=== PATIENT | male | born 1975 | race Caucasian/White ===

== ENCOUNTER → 2019-07-02 | Outpatient (CLI) | payer OTHER ==
[2019-07-02 07:39] LABS: BASO # 0.1 10^3/uL (0.0-0.2); EOS # 0.2 10^3/uL (0.0-0.5); EOS % 4.5 % (0.0-3.0); HEMATOCRIT 46.9 % (42.0-52.0); HEMOGLOBIN 16.1 g/dl (13.5-17.5); LYMPH # 1.5 10^3/uL (1.5-5.0); LYMPH % 30.4 % (24.0-44.0); MEAN CORPUSCULAR HGB CONC 34.3 g/dl (32.0-36.5); MEAN CORPUSCULAR VOLUME 90.4 fl (80.0-96.0); MONO # 0.5 10^3/uL (0.0-0.8); NEUTROPHILS # 2.6 10^3/uL (1.5-8.5); NEUTROPHILS % 52.7 % (36.0-66.0); PLATELET COUNT, AUTOMATED 163 10^3/uL (150-450); RED BLOOD COUNT 5.19 10^6/uL (4.30-6.10); WHITE BLOOD COUNT 4.9 10^3/uL (4.0-10.0)
[2019-07-02 08:20] LABS: ALBUMIN 4.1 GM/DL (3.2-5.2); ALT/SGPT 90 U/L (12-78); BILIRUBIN,TOTAL 1.2 MG/DL (0.2-1.0); BLOOD UREA NITROGEN 14 MG/DL (7-18); CALCIUM LEVEL 9.4 MG/DL (8.5-10.1); CARBON DIOXIDE LEVEL 31 MEQ/L (21-32); CHLORIDE LEVEL 108 MEQ/L (98-107); CHOLESTEROL LEVEL 234 MG/DL (<200); CHOLESTEROL RISK RATIO 3.078 (<5); CREATININE FOR GFR 1.06 MG/DL (0.70-1.30); GLOMERULAR FILTRATION RATE > 60.0 (>60); GLUCOSE, FASTING 100 MG/DL (70-100); HDL CHOLESTEROL 76 MG/DL (>40); LDL CHOLESTEROL 141 MG/DL (<100); NON-HDL-C 158 MG/DL; POTASSIUM SERUM 5.1 MEQ/L (3.5-5.1); SODIUM LEVEL 142 MEQ/L (136-145); TOTAL PROTEIN 7.5 GM/DL (6.4-8.2); TRIGLYCERIDES LEVEL 85 MG/DL (<150)
== END ==
LOC: M LAB 07:01
PROVIDERS: ATTEND Family Medicine
DX: Z79.899 Other long term (current) drug therapy (principal)

== ENCOUNTER → 2019-07-28 | Outpatient (CLI) | payer OTHER ==
[2019-07-28 07:22] LABS: ALBUMIN 4.2 GM/DL (3.2-5.2); BILIRUBIN,DIRECT 0.2 MG/DL (0.0-0.2); TOTAL PROTEIN 7.5 GM/DL (6.4-8.2)
== END ==
LOC: M LAB 06:12
PROVIDERS: ATTEND Family Medicine
DX: R74.0 Nonspecific elevation of levels of transaminase and lactic acid dehydrogenase [LDH] (principal)

== ENCOUNTER → 2019-09-12 | Outpatient (CLI) | payer OTHER ==
[2019-09-12 08:27] LABS: FERRITIN 453 NG/ML (26-388); IRON (FE) 92 UG/DL (65-175); PERCENT SATURATION 33.8 % (19.7-50.0); TOTAL IRON BINDING CAPACITY 272 UG/DL (250-450)
[2019-09-12 10:36] LABS: HEPATITIS B SURFACE ANTIGEN NEGATIVE (NEGATIVE)
[2019-09-12 11:03] LABS: HEPATITIS B CORE ANTIBODY IGM NEGATIVE (NEGATIVE); HEPATITIS C VIRUS ABY INDEX 0.2 INDEX (<0.8)
[2019-09-12 11:06] LABS: HEPATITIS A ANTIBODY IGM NEGATIVE (NEGATIVE)
== END ==
LOC: M LAB 06:42
PROVIDERS: ATTEND Family Medicine
DX: R74.0 Nonspecific elevation of levels of transaminase and lactic acid dehydrogenase [LDH] (principal)

== ENCOUNTER → 2021-01-04 | Outpatient (CLI) | payer OTHER ==
[2021-01-10 02:07] LABS: F012-IGE GREEN PEA 0.11 kU/L (Class 0/I); F083-IGE CHICKEN <0.10 kU/L (Class 0); F284-IGE TURKEY <0.10 kU/L (Class 0); F287-IGE KIDNEY BEAN <0.10 kU/L (Class 0); F309-IGE CHICK PEA 0.21 kU/L (Class 0/I); F315-IGE GR BEAN/ STRING BEAN <0.10 kU/L (Class 0); I002-IgE HORNET, WHITE FACE <0.10 kU/L (Class 0); I003-IgE YELLOW JACKET <0.10 kU/L (Class 0); I004-IgE PAPER WASP <0.10 kU/L (Class 0); I005-IgE HORNET, YELLOW <0.10 kU/L (Class 0)
== END ==
LOC: M LAB 15:59
PROVIDERS: ATTEND Allergy & Immunology Allergy
DX: T78.1XXA Other adverse food reactions, not elsewhere classified, initial encounter (principal); T63.441A Toxic effect of venom of bees, accidental (unintentional), initial encounter

== ENCOUNTER → 2021-04-02 | Outpatient (CLI) | payer OTHER ==
--- NOTE | 2021-04-08 14:16 | REP ---
INDICATION: LUMBAR RADICULOPATHY. COMPARISON: Comparison MRI study July 05, 2020.. TECHNIQUE: Sagittal and axial T1 and T2-weighted scans are acquired in the usual fashion with and without fat saturation. Sequences include spin echo, turbo spin-echo, and STIR imaging sequences. FINDINGS: There is straightening of the normal lumbar lordosis. Lumbar vertebral body heights are preserved. Alignment is normal. The tip of the conus medullaris is normal in position and appearance at L1. No extra spinal abnormality is observed. Axial and sagittal images taken at L1-2 show mild disc space narrowing. No disc protrusion, spinal stenosis, or foraminal narrowing is seen. At L2-3, there is degenerative disc narrowing and desiccation. There is diffuse disc bulging indenting the ventral margin of the thecal sac. Mild central canal stenosis is present. These findings are unchanged from the prior study. No foraminal narrowing is seen. At L3-4, there is degenerative disc space narrowing and decreased signal intensity. Moderate diffuse disc bulging is present and there is mild to moderate central canal stenosis. Ligamentum flavum and facet hypertrophy are seen at L3-4 as well. The central canal stenosis is somewhat more pronounced on today's study than it was previously. The disc bulge has increased. Midline AP dimension of the thecal sac at L3-4 is 8 mm. No neural foraminal narrowing is seen. At L4-5, there is mild diffuse disc bulging. This indents the ventral margin of the thecal sac. Moderate facet hypertrophy and mild ligamentum flavum hypertrophy are present at L4-5. These findings are unchanged. At L5-S1, there is a stable 3 mm retrolisthesis. Degenerative disc disease and facet osteoarthropathy is seen. There is central disc bulging which effaces the ventral epidural fat. There is right-sided neural foraminal narrowing at L5-S1. The L5-S1 findings are unchanged. IMPRESSION: Degenerative spondylosis changes as noted above. There is an increase in the diffuse disc bulging at L3-4 producing mild to moderate central canal stenosis. Right-sided neural foraminal narrowing is seen at L5-S1. Findings are otherwise unchanged. <Electronically signed by David Paulson > 04/08/21 [id number]
== END ==
LOC: M RAD 13:30
PROVIDERS: ATTEND Nurse Practitioner Family
DX: M47.9 Spondylosis, unspecified (principal); M51.26 Other intervertebral disc displacement, lumbar region; M48.061 Spinal stenosis, lumbar region without neurogenic claudication

== ENCOUNTER → 2021-04-30 | Outpatient (CLI) | payer OTHER ==
--- NOTE | 2021-04-30 11:07 | REPVR ---
PROCEDURE INFORMATION: Exam: MR Thoracic Spine Without Contrast Exam date and time: 04/30/2021 9:57 AM Age: 46 years old Clinical indication: Pain in thoracic intervertebral disc disorder; Without myelpathy or radiculopathy; Patient HX: Thoracic pain w/ invertrbal disc disorder TECHNIQUE: Imaging protocol: Multiplanar magnetic resonance images of the thoracic spine without contrast. COMPARISON: MRI-Spine, L.S. without con 04/02/2021 1:44 PM FINDINGS: Vertebrae: There is no evidence of fracture or destructive process. Spinal cord: The spinal cord signal is normal. Discs/Spinal canal/Neural foramina: There is no evidence of focal disc pathology or encroachment on the canal or foramina. Soft tissues: Unremarkable. IMPRESSION: 1. There is no evidence of focal disc pathology or encroachment on the canal or foramina. 2. There is no evidence of fracture or destructive process. Electronically signed by: Arian Morales On 04/30/2021 11:07:19 AM
== END ==
LOC: M RAD 08:52
PROVIDERS: ATTEND Family Medicine
DX: M51.24 Other intervertebral disc displacement, thoracic region (principal)

== ENCOUNTER → 2021-05-06 | Outpatient (CLI) | payer OTHER ==
[~2021-05-06] MED LIST: ISOVUE-300 61% 50ML VIAL As Ordered ONE; LIDOCAINE 1% MDV 20ML VIAL As Ordered ONE; TRIAMCINOLONE ACETONIDE SUSP 40 MG/ML VIAL (J3301) As Ordered ONE
--- NOTE | 2021-05-06 13:31 | REP ---
INDICATION: LT SHOULDER OA. COMPARISON: None TECHNIQUE: The procedure was performed by SHARON Solitario, under the direct supervision of Dr. Paulson. The benefits and risks of the procedure were explained to the patient, and an informed consent was obtained. Directly prior to the start of the procedure, a formal time-out was completed in the procedure room. The left glenohumeral joint space was localized using fluoroscopic guidance. The skin was prepped and draped in a sterile fashion. Approximately 5 mL of 1% Lidocaine 10 mg/ml was used as a local anesthetic. Using fluoroscopic guidance, a #22 gauge spinal needle was inserted and advanced into the left glenohumeral joint space. Approximately 1 mL of Isovue 300 was injected to verify placement. Six mL of a solution containing 5 mL 1% lidocaine 10 mg/ml and 1 mL Kenalog 40 milligrams/milliliter was injected into the joint space. The needle was removed and hemostasis was achieved. FINDINGS: The patient tolerated the procedure well and there were no immediate complications. IMPRESSION: 1. Fluoroscopically guided left shoulder pain injection. 0.2 minutes of fluoroscopy time was utilized for this procedure. Some fluoroscopic images are performed with last image hold technology. These images require no additional radiation. <Electronically signed by Ange Ruiz > 05/06/21 [id number] <Electronically signed by David Paulson > 05/06/21 [id number]
== END ==
LOC: M RADPRO 10:21
PROVIDERS: ATTEND Physician Assistant
DX: M19.012 Primary osteoarthritis, left shoulder (principal)
CPT/HCPCS: 20610; 77002; J3301; Q9967

== ENCOUNTER → 2021-08-03 | Outpatient (CLI) | payer OTHER ==
[~2021-08-03] MED LIST changes: +CETI-24 PO; +DICL75TA PO; +FLUTISP; -ISOVUE-300 61% 50ML VIAL As Ordered ONE; -LIDOCAINE 1% MDV 20ML VIAL As Ordered ONE; +MELO15TA28 PO; +PANT40TA29 PO; +TIZA4CAP6 PO; -TRIAMCINOLONE ACETONIDE SUSP 40 MG/ML VIAL (J3301) As Ordered ONE; +VITMTA PO
== END ==
LOC: M LABSMTC 09:17
PROVIDERS: ATTEND Anesthesiology
DX: Z01.812 Encounter for preprocedural laboratory examination (principal); Z20.822 Contact with and (suspected) exposure to COVID-19

== ENCOUNTER 2021-08-08 06:33 | Day surgery (SDC) | payer OTHER ==
[~2021-08-08] VITALS: Ht 185.4 cm; Wt 93.9 kg
[~2021-08-08 06:33] MED LIST changes: +NS 1,000 ML IV ONE
[2021-08-08] MEDS ORDERED: fentaNYL 100 MCG/2 ML INJECTION As Ordered ONE (07:03)
[2021-08-08] MEDS ORDERED: LIDOCAINE 2% 100MG/5ML SDV (FOR ANES.) As Ordered ONE (07:10)
[2021-08-08] MEDS ORDERED: propofoL 200 MG/20 ML VIAL As Ordered ONE (07:10)
[2021-08-08 08:33] VITALS: BP 105/79
== END 2021-08-08 08:38 | disposition home or self-care (01) ==
LOC: M OPP 06:33
PROVIDERS: ATTEND Internal Medicine Gastroenterology
DX: Z12.11 Encounter for screening for malignant neoplasm of colon (principal); D12.6 Benign neoplasm of colon, unspecified; K64.0 First degree hemorrhoids; K44.9 Diaphragmatic hernia without obstruction or gangrene; K22.89 Other specified disease of esophagus; K31.89 Other diseases of stomach and duodenum; R12 Heartburn; Z79.899 Other long term (current) drug therapy; Z87.891 Personal history of nicotine dependence
CPT/HCPCS: 43239; 45385; 88305; J3010

== ENCOUNTER → 2022-07-03 | Outpatient (CLI) | payer OTHER ==
[~2022-07-03] MED LIST changes: -NS 1,000 ML IV ONE
[2022-07-03 08:42] LABS: BASO % 0.3 % (0.0-1.0); EOS % 0.1 % (0.0-3.0); HEMATOCRIT 46.2 % (42.0-52.0); HEMOGLOBIN 15.9 g/dl (13.5-17.5); LYMPH # 1.3 10^3/uL (1.5-5.0); LYMPH % 11.1 % (24.0-44.0); MEAN CORPUSCULAR HEMOGLOBIN 30.6 pg (27.0-33.0); MEAN CORPUSCULAR HGB CONC 34.4 g/dl (32.0-36.5); MONO # 0.5 10^3/uL (0.0-0.8); MONO % 4.6 % (2.0-8.0); NEUTROPHILS # 9.4 10^3/uL (1.5-8.5); NEUTROPHILS % 83.4 % (36.0-66.0); PLATELET COUNT, AUTOMATED 220 10^3/uL (150-450); RED BLOOD COUNT 5.19 10^6/uL (4.30-6.10); WHITE BLOOD COUNT 11.3 10^3/uL (4.0-10.0)
[2022-07-03 09:24] LABS: ALBUMIN 4.3 GM/DL (3.2-5.2); ALT/SGPT 62 U/L (12-78); BILIRUBIN,DIRECT 0.3 MG/DL (0.0-0.2); BLOOD UREA NITROGEN 25 MG/DL (7-18); CALCIUM LEVEL 9.6 MG/DL (8.5-10.1); CARBON DIOXIDE LEVEL 30 MEQ/L (21-32); CHLORIDE LEVEL 106 MEQ/L (98-107); CHOLESTEROL LEVEL 245 MG/DL (<200); CHOLESTEROL RISK RATIO 2.951 (<5); CREATININE FOR GFR 0.97 MG/DL (0.70-1.30); GLOMERULAR FILTRATION RATE > 60.0 (>60); GLUCOSE, FASTING 134 MG/DL (70-100); HDL CHOLESTEROL 83 MG/DL (>40); LDL CHOLESTEROL 150 MG/DL (<100); NON-HDL-C 162 MG/DL; POTASSIUM SERUM 5.1 MEQ/L (3.5-5.1); SODIUM LEVEL 137 MEQ/L (136-145); TOTAL PROTEIN 7.5 GM/DL (6.4-8.2); TRIGLYCERIDES LEVEL 58 MG/DL (<150); URIC ACID 2.8 MG/DL (3.5-7.2)
== END ==
LOC: M LAB 07:11
PROVIDERS: ATTEND Family Medicine
DX: R74.01 Elevation of levels of liver transaminase levels (principal); R74.02 Elevation of levels of lactic acid dehydrogenase [LDH]; M79.674 Pain in right toe(s); Z13.220 Encounter for screening for lipoid disorders

== ENCOUNTER → 2023-02-19 | Outpatient (CLI) | payer OTHER ==
[~2023-02-19] MED LIST changes: +FLUT50SP17; -FLUTISP
== END ==
LOC: M PLAIMG 07:27
PROVIDERS: ATTEND Nurse Practitioner Family
DX: M54.12 Radiculopathy, cervical region (principal)